=== PATIENT | female | born 1995 | race Two or more races ===

== ENCOUNTER 2023-08-05 14:49 | Outpatient (CLI) | payer OTHER | END 2023-08-05 14:50 | disposition home or self-care (01) | LOC: PRENATAL 14:49 | PROVIDERS: ATTEND Obstetrics & Gynecology Maternal & Fetal Medicine | DX: O35.3XX0 Maternal care for (suspected) damage to fetus from viral disease in mother, not applicable or unspecified (principal); O44.00 Complete placenta previa NOS or without hemorrhage, unspecified trimester; Z3A.21 21 weeks gestation of pregnancy ==

== ENCOUNTER 2023-09-18 16:01 | Outpatient (CLI) | payer OTHER | END 2023-09-18 17:50 | disposition home or self-care (01) | LOC: NST 16:01 | PROVIDERS: ATTEND Obstetrics & Gynecology | DX: Z34.83 Encounter for supervision of other normal pregnancy, third trimester (principal) ==

== ENCOUNTER 2023-09-25 12:48 | Outpatient (CLI) | payer OTHER ==
[2023-09-25] MEDS ORDERED: MAGNESIUM SULFATE IN WATER 4 GM/100 ML PIGGYBACK IV ONE ×2 (13:37→14:00)
[2023-09-25] MEDS ORDERED: BETAMETHASONE ACETATE,SOD PHOS 30 MG/5 ML ML ONE (13:41)
[2023-09-25] MEDS ORDERED: RINGERS SOLUTION,LACTATED 1,000 ML IV SCH (14:00)
[2023-09-25] MEDS ORDERED: BETAMETHASONE ACETATE,SOD PHOS 30 MG/5 ML ML IM ONE (14:00)
[2023-09-25 14:44] LABS: HEMATOCRIT 29.9 % (36.0-45.00); HEMOGLOBIN 10.1 g/dL (12.0-15.00); MEAN CELL VOLUME 84.6 fL (80.00-100.00); MEAN CORPUSCULAR HEMOGLOBIN 28.7 pg (27.00-32.0); MEAN CORPUSCULAR HGB CONC 33.9 g/dl (32.0-36.0); PLATELET COUNT 193 K/uL (150-450); RED BLOOD COUNT 3.53 M/uL (4.00-6.00); RED CELL DISTRIBUTION WIDTH 14.5 % (11.5-14.5)
[2023-09-25 14:45] LABS: URINE APPEARANCE Clear; URINE BILIRRUBIN Negative (NEGATIVE); URINE BLOOD Negative; URINE COLOR Yellow; URINE GLUCOSE Negative (NEGATIVE); URINE LEUKOCYTE Small; URINE NITRATE Negative; URINE PROTEIN Trace (NEGATIVE)
[2023-09-25 14:52] LABS: URINE BACTERIA 382.9 uL (0.0-1933); URINE EPITHELIAL CELLS 37.5 uL (0.0-38.8); URINE RBC 99.5 uL (0.0-20.8); URINE WBC 6.4 uL (0.0-23.2)
[2023-09-25 15:11] LABS: INR 0.97; PARTIAL THROMBOPLASTIN TIME 24.2 SECONDS (22.0-34.0); PROTHROMBIN TIME 10.2 SECONDS (9.0-11.5)
[2023-09-25 15:13] LABS: ALBUMIN 2.6 gm/dL (3.4-5.0); BILIRUBIN TOTAL 0.22 mg/dL (0.3-1.2); CALCIUM 8.3 mg/dL (8.5-10.1); CREATININE SERUM 0.49 mg/dL (0.55-1.02); GFR 152.66; GLOBULINA 3.3 G/DL (2.4-3.5); POTASSIUM 3.95 mEq/L (3.5-5.1); TOTAL PROTEIN 5.9 gm/dL (6.4-8.2)
[2023-09-25] MEDS ORDERED: INDOMETHACIN 50 MG CAPSULE PO ONE (15:15)
[2023-09-26] MEDS ORDERED: INDOMETHACIN 25 MG CAPSULE PO SCH
[2023-09-26] MEDS ORDERED: BETAMETHASONE ACETATE,SOD PHOS 30 MG/5 ML ML ONE (13:43)
[2023-09-26] MEDS ORDERED: BETAMETHASONE ACETATE,SOD PHOS 30 MG/5 ML ML IM ONE (13:45)
== END 2023-09-26 14:11 | disposition home or self-care (01) ==
LOC: OBS/DEL 12:48
PROVIDERS: ATTEND Obstetrics & Gynecology
DX: O26.893 Other specified pregnancy related conditions, third trimester (principal); Z3A.29 29 weeks gestation of pregnancy; O26.849 Uterine size-date discrepancy, unspecified trimester; O36.8199 Decreased fetal movements, unspecified trimester, other fetus; O60.00 Preterm labor without delivery, unspecified trimester

== ENCOUNTER 2023-10-30 21:32 | Outpatient (CLI) | payer OTHER ==
[2023-10-30] MEDS ORDERED: RINGERS SOLUTION,LACTATED 1,000 ML IV SCH (21:45)
[2023-10-30 22:15] LABS: HEMATOCRIT 30.7 % (36.0-45.00); HEMOGLOBIN 10.4 g/dL (12.0-15.00); MEAN CORPUSCULAR HEMOGLOBIN 28.4 pg (27.00-32.0); MEAN CORPUSCULAR HGB CONC 33.9 g/dl (32.0-36.0); PH,URINE 6.5 (5.0-8.0); PLATELET COUNT 184 K/uL (150-450); RED BLOOD COUNT 3.65 M/uL (4.00-6.00); RED CELL DISTRIBUTION WIDTH 15.4 % (11.5-14.5); URINE APPEARANCE Cloudy; URINE BILIRRUBIN Negative (NEGATIVE); URINE BLOOD Negative; URINE COLOR Yellow; URINE GLUCOSE Negative (NEGATIVE); URINE LEUKOCYTE Moderate; URINE NITRATE Negative; URINE PROTEIN 30 (NEGATIVE)
[2023-10-30] MEDS ORDERED: ACETAMINOPHEN 500 MG GEL..CAP PO ONE (22:15)
[2023-10-30 22:18] LABS: URINE BACTERIA 3429.4 uL (0.0-1933); URINE EPITHELIAL CELLS 74.6 uL (0.0-38.8); URINE RBC 4.7 uL (0.0-20.8); URINE WBC 303.3 uL (0.0-23.2)
[2023-10-31] MEDS ORDERED: ACETAMINOPHEN 500 MG GEL..CAP PO ONE (03:45)
== END 2023-10-31 10:47 | disposition home or self-care (01) ==
LOC: OBS/DEL 21:32
PROVIDERS: ATTEND Obstetrics & Gynecology
DX: O23.43 Unspecified infection of urinary tract in pregnancy, third trimester (principal); N39.0 Urinary tract infection, site not specified; Z3A.34 34 weeks gestation of pregnancy; R10.2 Pelvic and perineal pain

== ENCOUNTER 2023-11-02 08:21 | Outpatient (CLI) | payer OTHER ==
[2023-11-03] MEDS ORDERED: PRENATAL CAPLE1 EAC1 PO (11:17)
[2023-11-03] MEDS ORDERED: IRON240 MG PO (11:17)
== END 2023-11-02 08:23 | disposition home or self-care (01) ==
LOC: PRENATAL 08:21
PROVIDERS: ATTEND Obstetrics & Gynecology Maternal & Fetal Medicine
DX: O26.849 Uterine size-date discrepancy, unspecified trimester (principal); O36.8199 Decreased fetal movements, unspecified trimester, other fetus; Z3A.34 34 weeks gestation of pregnancy

== ENCOUNTER 2023-11-03 11:01 | Outpatient (CLI) | payer OTHER ==
[2023-11-03] MEDS ORDERED: PRENATAL CAPLE1 EAC1 PO (11:17)
[2023-11-03] MEDS ORDERED: IRON240 MG PO (11:17)
[2023-11-03] MEDS ORDERED: NIFEDIPINE 20 MG CAPSULE PO ONE (11:30)
[2023-11-03] MEDS ORDERED: RINGERS SOLUTION,LACTATED 1,000 ML IV SCH (12:00)
[2023-11-03] MEDS ORDERED: ACETAMINOPHEN 500 MG GEL..CAP PO PRN (18:00)
[2023-11-04] MEDS ORDERED: NIFEDIPINE 30 MG TAB.SA.OSM PO SCH (09:00)
== END 2023-11-04 13:47 | disposition home or self-care (01) ==
LOC: OBS/DEL 11:01
PROVIDERS: ATTEND Obstetrics & Gynecology
DX: O23.43 Unspecified infection of urinary tract in pregnancy, third trimester (principal); N39.0 Urinary tract infection, site not specified; Z3A.34 34 weeks gestation of pregnancy; O36.8199 Decreased fetal movements, unspecified trimester, other fetus; O60.00 Preterm labor without delivery, unspecified trimester